=== PATIENT | female | born 1985 ===

== ENCOUNTER 2018-02-28 22:51 | Emergency (ER) | payer MEDICAID ==
[2018-02-28 23:55] LABS: SQUAMOUS EPITHIAL 11 /hpf (0-5); URINE BACTERIA RARE (<OCC); URINE BILIRUBIN NEGATIVE (NEGATIVE); URINE BLOOD NEGATIVE (NEGATIVE); URINE CLARITY CLOUDY (Clear); URINE COLOR YELLOW (YELLOW); URINE GLUCOSE (UA) NEG (Normal); URINE LEUKOCYTE ESTERASE LARGE Leu/uL (Negative); URINE PROTEIN NEGATIVE (NEGATIVE); URINE UROBILINOGEN 0.2-1.0 mg/dL (0.2-1.0)
[2018-03-01 00:47] LABS: BASO % 0.6 % (0.0-2.0); EOS # 0.1 K/uL (0.0-0.7); EOS % 2.1 % (0.0-4.0); HEMOGLOBIN 12.4 g/dL (12.0-16.0); LYMPH # 2.1 K/uL (1.0-4.3); LYMPH % 32.4 % (20.0-40.0); MEAN CELL VOLUME 87.1 fl (81.0-99.0); MEAN CORPUSCULAR HGB CONC 32.2 g/dL (33.0-37.0); MEAN PLATELET VOLUME 10.1 fl (7.2-11.7); MONO # 0.4 K/uL (0.0-0.8); MONO % 6.7 % (0.0-10.0); NEUT # 3.7 K/uL (1.8-7.0); NEUT % 58.2 % (50.0-75.0); RBC 4.42 Mil/uL (3.80-5.20); RED CELL DISTRIBUTION WIDTH 14.9 % (11.5-14.5); WHITE BLOOD COUNT 6.4 K/uL (4.8-10.8)
[2018-03-01 00:54] LABS: ALB/GLOB RATIO 1.1 (1.0-2.1); ALBUMIN 3.8 g/dL (3.5-5.0); ALT/SGPT 36 U/L (9-52); AST/SGOT 21 U/L (14-36); BLOOD UREA NITROGEN 12 mg/dl (7-17); CALCIUM 8.9 mg/dL (8.4-10.2); GFR AFRICAN-AMERICAN > 60; GFR NON-AFRICAN AMERICAN > 60
--- NOTE | 2018-03-01 01:33 | ED PDOC ---
HPI: Female Pain Time Seen by Provider: 02/28/18 23:11 Chief Complaint (Nursing): Female Genitourinary Chief Complaint (Provider): vaginal pain, abd pain History Per: Patient History/Exam Limitations: no limitations Onset/Duration Of Symptoms: Days (2) Current Symptoms Are (Timing): Still Present Quality Of Discomfort: "Pain" Additional Complaint(s): 32 y/o female presents for evaluation of vaginal pain x 2 days. Associated lower pelvic pain. Patient denies fever, nausea/vomiting, chest pain, shortness of breath, palpitations, dysuria, hematuria, vaginal bleeding/ discharge. Patient states no recent sexual encounters, no reason to suspect STD. Past Medical History Reviewed: Historical Data, Nursing Documentation, Vital Signs Vital Signs: Last Vital Signs Temp 98.5 F 03/01/18 00:59 Pulse 69 03/01/18 00:59 Resp 18 03/01/18 00:59 BP 148/93 H 03/01/18 00:59 Pulse Ox 99 03/01/18 00:59 - Medical History PMH: No Chronic Diseases - Surgical History Surgical History: No Surg Hx - Family History Family History: States: No Known Family Hx - Immunization History Hx Tetanus Toxoid Vaccination: No Hx Influenza Vaccination: No Hx Pneumococcal Vaccination: No - Home Medications Home Medications: Ambulatory Orders Medication Instructions Recorded Ibuprofen [Motrin] 600 mg PO Q6 #30 tab 07/09/15 Naproxen [Naprosyn] 500 mg PO Q12 PRN #20 tablet 03/01/18 - Allergies Allergies/Adverse Reactions: Allergies Allergy/AdvReac Type Severity Reaction Status Date / Time No Known Allergies Allergy Unverified 02/28/18 23:02 Review of Systems ROS Statement: Except As Marked, All Systems Reviewed And Found Negative Genitourinary Female: Positive for: Pelvic Pain Physical Exam - Reviewed Nursing Documentation Reviewed: Yes Vital Signs Reviewed: Yes - Physical Exam Appears: Positive for: Well, Non-toxic, No Acute Distress Head Exam: Positive for: ATRAUMATIC, NORMAL INSPECTION, NORMOCEPHALIC Skin: Positive for: Normal Color Eye Exam: Positive for: Normal appearance ENT: Positive for: Normal ENT Inspection Cardiovascular/Chest: Positive for: Regular Rate, Rhythm Respiratory: Positive for: Normal Breath Sounds Gastrointestinal/Abdominal: Positive for: Bowel Sounds, Soft, Tenderness (rlq, suprapubic, llq) Pelvic Exam: Positive for: External Exam Normal (no erythema, edema, lesions noted), Speculum Exam Normal, No Cerv. Motion Tender, Other (exam bowstring maker Eunice Steele RN). Negative for: Active Bleeding, Cervicitis, Discharge, Tender Adnexa, Tender Uterus Back: Positive for: Normal Inspection Extremity: Positive for: Normal ROM Neurologic/Psych: Positive for: Alert, Oriented - Laboratory Results Result Diagrams: 03/01/18 00:42 03/01/18 00:42 - ECG O2 Sat by Pulse Oximetry: 99 - Progress ED Course And Treament: Patient tearful, when asked, states she is just tired. Patient asked by communications writer and by RN of any forceful, non-consensual sexual encounters multiple times, patient responds no. States she is not currently sexually active. labs, u/s, gc/chlamydia cultures, urine, ibuprofen PO EXAM: US Pelvis, Transvaginal CLINICAL HISTORY: 32 years old, female; Pain; Pelvic pain TECHNIQUE: Real-time transvaginal pelvic ultrasound (complete) with image documentation. Transvaginal imaging was used for better evaluation of the endometrium and adnexa. COMPARISON: No relevant prior studies available. FINDINGS: Uterus/cervix: The uterus measures 7.5 x 3.5 x 4.5 cm. The endometrial stripe thickness is 6 mm. There is a nabothian cyst of the cervix. No myometrial mass. Right ovary: There is a simple appearing cyst of the right ovary measuring a maximum of 2.8 cm. The right ovary measures 3.8 x 2.6 x 3.2 cm with normal Doppler flow. Normal blood flow. Left ovary: The left ovary measures 1.8 x 1.3 x 2.0 cm with normal Doppler flow. Normal blood flow. Free fluid: No free fluid. Bladder: Empty bladder which cannot be evaluated with this probe. IMPRESSION: There is a simple appearing cyst of the right ovary measuring a maximum of 2.8 cm. Patient educated on findings, discharged with rx naproxen Advised follow up Crop Production Advisor 2-3 days. Return precautions given Disposition - Clinical Impression Clinical Impression: Right ovarian cyst, Vaginal pain - Patient ED Disposition Is Patient to be Admitted: No Counseled Patient/Family Regarding: Studies Performed, Diagnosis, Need For Followup, Rx Given - Disposition [facility] Disposition: Routine/Home Disposition Time: 01:45 Condition: IMPROVED Prescriptions: Naproxen [Naprosyn] 500 mg PO Q12 PRN #20 tablet PRN Reason: Pain, Moderate (4-7) Instructions: Ovarian Cysts, Vulvar Pain
[2018-03-01 05:23] VITALS: BP 140/87; PULSE 74; RESP 16; TEMP 98; O2SAT 100
--- NOTE | 2018-03-01 09:34 | US ---
HISTORY: pelvic pain COMPARISON: None available. TECHNIQUE: Transvaginal FINDINGS: UTERUS: Measures 7.5 x 3.5 x 4.5 cm. Normal in size and appearance. No fibroid or other mass lesion seen. ENDOMETRIUM: Measures 6 mm in diameter. Unremarkable. CERVIX: 1.7 x 1.5 x 1.2 cm nabothian cyst RIGHT OVARY: Measures 3.8 x 2.6 x 3.2 cm. No solid mass. Normal flow. Right ovarian cyst 2.8 x 1.8 x 2.0 cm LEFT OVARY: Measures 1.8 x 1.3 x 2.0 cm. No solid mass. Normal flow. FREE FLUID: No significant free fluid noted. OTHER FINDINGS: None. IMPRESSION: Probably benign right ovarian cyst measuring up to 2.8 cm. Slight irregularity to its wall may be attributed to some contraction. Consider follow-up pelvic ultrasound imaging in 6 8 weeks to ensure ongoing resolution. The recommended follow-up is in addition to the preliminary interpretation) provided by [facility]. Comments: Study marked for PA review.
== END 2018-03-01 02:13 | disposition home or self-care (01) ==
LOC: H.ER 22:51
DX: N83.201 Unspecified ovarian cyst, right side (principal); R10.2 Pelvic and perineal pain